=== PATIENT | male | born 1980 | race Caucasian/White ===

== ENCOUNTER 2021-02-25 11:56 | Emergency (ER) | payer OTHER ==
[~2021-02-25] VITALS: Ht 172.7 cm; Wt 89.8 kg
[2021-02-25] MEDS ORDERED: ORPHENADRINE C100 MG PO (13:47)
[2021-02-25] MEDS ORDERED: KETO10TA2 PO (13:47)
== END 2021-02-25 14:47 | disposition home or self-care (01) ==
LOC: ER 11:56
DX: S30.0XXA Contusion of lower back and pelvis, initial encounter (principal); W18.39XA Other fall on same level, initial encounter; Y93.89 Activity, other specified; Y92.098 Other place in other non-institutional residence as the place of occurrence of the external cause; Y99.8 Other external cause status